=== PATIENT | female | born 1965 | race Caucasian/White ===

== ENCOUNTER 2022-12-05 15:31 | Emergency (ER) | payer BC, SELFPAY ==
--- NOTE | ~2022-12-05 | XR_ITS ---
EXAMINATION: XR chest 2V DATE: 12/05/2022 15:55 INDICATION: Cough. Shortness of breath. TECHNIQUE: Frontal and lateral views of the chest were obtained. COMPARISON: None. FINDINGS: There are airspace opacities in lingula. No pleural effusion or pneumothorax. The heart siz e is normal. IMPRESSION: 1. Airspace opacities in lingula, consistent with atelectasis versus pneumonia. Reviewed, dictated and finalized at location E.
[2022-12-05 15:35] VITALS: BP 154/76; PULSE 116; RESP 24; TEMP 36.8; O2SAT 95
--- NOTE | 2022-12-05 15:35 | ED.GENADULT ---
HPI - General Adult General Chief complaint: Upper Respiratory Infection Stated complaint: Shortness of Breath/Cough Source: patient and RN notes reviewed History of Present Illness HPI narrative: 57 yo F presents to urgent care with complaints of cough and labored breathing. Pt states the cough started this past Saturday and the labored breathing started in the last day or so. Pt reports productive cough. Denies any fevers, chills, chest pain, sore throat, congestion, vomiting, diarrhea, or other complaints. Pt has been taking her prescibed inhalers at home with moderate relief. Related Data Home Medications Medication Instructions Recorded Confirmed albuterol sulfate 90 mcg/actuation 2 puff inhalation Q4-6H PRN 12/05/22 12/05/22 aerosol inhaler Shortness Of Breath Or Wheezing lisinopril 10 mg tablet 10 mg PO DAILY 12/05/22 12/05/22 tiotropium 2.5 mcg-olodaterol 2.5 2 puff inhalation DAILY 12/05/22 12/05/22 mcg/actuation mist for inhalation (Stiolto Respimat) Allergies Allergy/AdvReac Type Severity Reaction Status Date / Time No Known Allergies Allergy Verified 12/05/22 15:50 Review of Systems Review of Systems: CONSTITUTIONAL: Denies fever, chills, or sweats. EYES: Denies visual changes, redness, or discharge. ENT: Denies otalgia and sore throat CARDIOVASCULAR: Denies chest pain, palpitations, or edema. RESPIRATORY: + cough and dyspnea. GASTROINTESTINAL: Denies abdominal pain, nausea, vomiting, or diarrhea. GENITOURINARY: Denies dysuria or hematuria. SKIN: Denies rash or itching. MUSCULOSKELETAL: Denies back pain, joint pain, or myalgia. NEUROLOGIC: Denies headache, numbness, or weakness. Pertinent positives per HPI. PMFSH Comments At the time of my signature, I reviewed and agree with the nursing past medical, surgical, social, and family history. There is no relevant family history pertinent to the patient complaint. Exam Narrative: GENERAL: This is a well-nourished, well-developed patient, in no apparent distress. HEAD: normocephalic, atraumatic. EYES: Sclera clear/white. Vision is grossly intact. EARS: External ears normal, auditory canals clear and without drainage. Hearing grossly intact. NOSE: External nose normal with no obvious nasal discharge, nares without redness, no rhinorrhea. THROAT: Mucous membranes moist, posterior pharynx clear. NECK: Neck supple, non-tender without lymphadenopathy, masses or thyromegaly. CARDIOVASCULAR: Regular rate and rhythm without murmurs, gallops, or rubs. RESPIRATORY:Slight wheezing noted. Lung sounds bilaterally are diminished. GASTROINTESTINAL: Abdomen soft, non-tender, nondistended. Bowel sounds are active. No hepato-splenomegaly, or palpable masses. No guarding. SKIN: warm, intact with no suspicious lesions or rash, good texture and turgor. NEURO: awake, alert, and oriented to person, place and time. There were no obvious focal neurologic abnormalities. EXTREMITIES: No clubbing, cyanosis, or edema. No joint tenderness, effusion, or edema noted. BACK: Nontender without deformity or crepitus. No flank tenderness. Course Course Level of Care: Express Care Visit Vital Signs Vital signs: Vital Signs Temperature 98.2 F 12/05/22 15:35 Pulse Rate 116 H 12/05/22 15:35 Respiratory Rate 24 H 12/05/22 15:35 Blood Pressure 154/76 H 12/05/22 15:35 Pulse Oximetry 95 12/05/22 15:35 Oxygen Delivery Room Air 12/05/22 15:35 Temperature 98.2 F 12/05/22 15:35 Pulse Rate 116 H 12/05/22 15:35 Respiratory Rate 24 H 12/05/22 15:35 Blood Pressure 154/76 H 12/05/22 15:35 Pulse Oximetry 95 12/05/22 15:35 Oxygen Delivery Room Air 12/05/22 15:35 reviewed Medical Decision Making MDM Narrative Medical decision making narrative: Take the antibiotics and steroids as directed. May taper the steroids after speaking with your structural steel ironworker. Follow up with your structural steel ironworker as soon as possible. Go to the ER with any new or w
== END 2022-12-05 16:10 | disposition home or self-care (01) ==
PROVIDERS: Emergency Provider Nurse Practitioner Family; PCP Internal Medicine
DX: J18.9 Pneumonia, unspecified organism (principal); I10 Essential (primary) hypertension; J44.9 Chronic obstructive pulmonary disease, unspecified
CPT/HCPCS: 71046; 99203; G0463

== ENCOUNTER 2023-02-19 12:07 | Emergency (ER) | payer BC, SELFPAY ==
[2023-02-19 12:15] VITALS: BP 159/74; PULSE 104; RESP 20; TEMP 36.9; O2SAT 91
[2023-02-19 12:23] VITALS: BP 159/74; PULSE 104; RESP 20; TEMP 36.9; O2SAT 91
--- NOTE | 2023-02-19 12:49 | ED.URI ---
HPI - URI/Sore Throat General Chief Complaint: Upper Respiratory Infection Stated Complaint: Shortness of Breath Time Seen by Provider: 02/19/23 12:49 Source: patient, RN notes reviewed and old records reviewed Mode of arrival: ambulatory Limitations: no limitations History of Present Illness HPI Narrative: 57 year old female who presents to express care with complaints of cough, some shortness of breath with exertion, expectoration of brown yellow phlegm for the past 2 days. Patient also reports that she has not had a fever, but reports some body aches and has had a headache also today. Patient reports that she has history of COPD and she does continue to use tobacco daily. Patient reports that she has had to use her inhaler more often and has taken DayQuil and Advil for her symptoms. MD elicited complaint: cough and other (dyspnea, headache and some body aches.) Pertinent past history: COPD Onset (ago): day(s) (2) Pain scale (0-10): 2 Description of mucous: yellow and other (brownish) Treatments prior to arrival: ibuprofen and other (DayQuil and inhalers) Related Data Home Medications Medication Instructions Recorded Confirmed albuterol sulfate 90 mcg/actuation 2 puff inhalation Q4-6H PRN 12/05/22 02/19/23 aerosol inhaler Shortness Of Breath Or Wheezing lisinopril 10 mg tablet 10 mg PO DAILY 12/05/22 02/19/23 tiotropium 2.5 mcg-olodaterol 2.5 2 puff inhalation DAILY 12/05/22 02/19/23 mcg/actuation mist for inhalation (Stiolto Respimat) Allergies Allergy/AdvReac Type Severity Reaction Status Date / Time No Known Allergies Allergy Verified 02/19/23 12:16 Review of Systems Review of Systems: CONSTITUTIONAL: Denies malaise, chills, sweats, or fever. EYES: Denies visual changes, redness, or discharge. ENT: Reports rhinorrhea, congestion, no sinus pain, no otalgia and no sore throat. CARDIOVASCULAR: Denies chest pain, palpitations, or edema. RESPIRATORY: Reports cough.? Reports dyspnea with exertion and cough productive GASTROINTESTINAL: Denies abdominal pain, nausea, vomiting, diarrhea SKIN: Denies rash or itching. MUSCULOSKELETAL:Reports myalgia. NEUROLOGIC: Reports headache. All systems reviewed & are unremarkable except as noted in HPI and below PMFSH Past Medical History Medical History (Updated 02/20/23 @ 00:02 by Nneka Glover) COPD (chronic obstructive pulmonary disease) Hypertension Surgical History Surgical History (Updated 02/19/23 @ 13:06 by Rika Vann NP) H/O tubal ligation Social History Social History (Updated 02/19/23 @ 13:05 by Rika Vann NP) Smoking packs per day: 0.75 Smoking cigarettes per day: 15.0 Years smoked: 40 Smoking pack-years: 30.00 Smoking status: Current every day smoker Tobacco type: cigarettes Alcohol intake: current Alcohol use details: social Substance use type: does not use Living arrangements: with family Gender identity (if verbalized by the patient): Female Comments At time of signature, agree with nursing past medical, surgical, social and family history. There is no relevant family history pertinent to the presenting complaint Exam Narrative: GENERAL: Well-appearing, well-nourished, and in no acute distress. HEAD: Normocephalic EYES: PERRLA, conjunctivae clear ENT: Nares clear, turbinates edematous and erythematous, yellowish discharge. Mucous membranes moist. TM pearly murray with dull light reflex bilaterally; no tragal tenderness. Oropharynx erythematous without lesions. Tonsils not enlarged and without exudate, no drooling, no hoarseness, no trismus, uvula midline. NECK: Supple. No lymphadenopathy CHEST: Scattered wheezing, breath sounds equal. wheezing,no rhonchi, rales, or stridor. No respiratory distress, speaks in full sentences.cough loose productive, SAO2 91% on room air HEART: Regular rate and rhythm. No murmur heard. SKIN: Warm, dry, no rash. NEURO: Alert and oriented
== END 2023-02-19 13:25 | disposition home or self-care (01) ==
LOC: EXPBETH 12:10
PROVIDERS: Emergency Provider Registered Nurse; PCP Internal Medicine
DX: J44.1 Chronic obstructive pulmonary disease with (acute) exacerbation (principal); I10 Essential (primary) hypertension; F17.210 Nicotine dependence, cigarettes, uncomplicated; Z79.899 Other long term (current) drug therapy; Z20.822 Contact with and (suspected) exposure to COVID-19
CPT/HCPCS: 87426; 87804; 99213; C9803; G0463